=== PATIENT | female | born 1945 | race Caucasian/White ===

== ENCOUNTER 2018-12-11 21:01 | Emergency (ER) | payer MEDICARE, BC ==
[~2018-12-11] VITALS: Ht 162.6 cm; Wt 95.7 kg
[~2018-12-11 21:01] MED LIST: ADVAIR 100-501 EACH INH; ATIVAN2 MG PO; DOXYCYCLINE 10100 MG PO; HYDROCODON-ACE1 EAC5 PO; SYMBICORT160 MCG/4. INH; TESSALON PERLE100 MG PO
[2018-12-11 21:13] LABS: URINE BILIRUBIN NEGATIVE (Negative); URINE BLOOD TRACE (Negative); URINE COLOR YELLOW; URINE GLUCOSE-RANDOM NEGATIVE (Negative); URINE KETONES NEGATIVE (Negative); URINE LEUKOCYTES-REFLEX 1+ (Negative); URINE NITRITE-REFLEX NEGATIVE (Negative); URINE PROTEIN NEGATIVE (Negative); URINE UROBILINOGEN 0.2 E.U./dl (0.2-1.0)
[2018-12-11 21:14] LABS: URINE CLARITY SL CLOUDY
[2018-12-11] MEDS ORDERED: BYSTOLIC 5 MG5 MG PO (21:15)
[2018-12-11] MEDS ORDERED: ADVAIR HFA 230M12 GM INH (21:15)
[2018-12-11 21:20] LABS: BACTERIA-REFLEX >30 Many /HPF (None Seen); CASTS None Seen /LPF (None Seen); CRYSTALS None Seen /LPF (None Seen); MUCUS 4-6 Moderate strn/LPF (None Seen); SQUAMOUS 0-3 Few /LPF (0-3); TRANSITIONAL EPITHEL CELL 0-3 Few /LPF (None Seen); URINE WBC-REFLEX >25 Many /HPF (0-5); WBC CLUMPS Moderate (None Seen)
[2018-12-11] MEDS ORDERED: PYRIDIUM200 MG PO (22:40)
[2018-12-11] MEDS ORDERED: BACTRIM DS TAB1 EAC1 PO (22:40)
[2018-12-11 22:48] VITALS: BP 141/75
== END 2018-12-11 22:48 | disposition home or self-care (01) ==
LOC: M.ERS 21:01
PROVIDERS: Emergency Medicine
DX: N39.0 Urinary tract infection, site not specified (principal); J45.909 Unspecified asthma, uncomplicated; M79.7 Fibromyalgia; Z88.5 Allergy status to narcotic agent; Z88.6 Allergy status to analgesic agent; Z88.8 Allergy status to other drugs, medicaments and biological substances; Z90.710 Acquired absence of both cervix and uterus

== ENCOUNTER 2020-10-25 15:05 | Observation (INO) | payer MEDICARE, BC ==
[~2020-10-25] VITALS: Ht 162.6 cm; Wt 95.7 kg
[~2020-10-25 15:05] MED LIST changes: +ADVAIR HFA 230M12 GM INH; +BACTRIM DS TAB1 EAC1 PO; +BYSTOLIC 5 MG5 MG PO; +PYRIDIUM200 MG PO
[2020-10-25 15:15] VITALS: BP 128/53
[2020-10-25] MEDS ORDERED: EDARBYCLOR 40-1 EAC1 PO (15:27)
[2020-10-25 15:47] LABS: ABSOLUTE LYMPHOCYTES 1.5 thou/uL (0.8-5.3); ABSOLUTE MONOCYTES 0.4 thou/uL (0.0-1.2); BASOPHILS 0.3 %; EOSINOPHILS 0.7 %; HEMATOCRIT 40.2 % (37.0-47.0); HEMOGLOBIN 13.4 gm/dL (12.0-15.0); LYMPHOCYTES 25.7 %; MCH 31.8 pg (26.0-34.0); MCHC 33.4 g/dL (28.0-37.0); MCV 95.1 fL (80.0-100.0); MONOCYTES 6.9 %; MPV 8.1 fl. (7.2-11.1); NUCLEATED RBCS 0 /100WBC; PLATELET COUNT* 140 thou/uL (150-400); POLYS 66.4 %; RBC 4.22 mil/uL (4.20-5.00); RDW-CV 13.4 % (10.5-14.5)
[2020-10-25 15:58] LABS: CALCIUM 8.2 mg/dL (8.5-10.1); CREATININE 1.3 mg/dL (0.6-1.3)
[2020-10-25 16:02] LABS: ALBUMIN 3.6 g/dL (3.4-5.0); TOTAL BILIRUBIN 0.4 mg/dL (<0.1-1.0); TOTAL PROTEIN 6.9 g/dL (6.4-8.2)
--- NOTE | 2020-10-25 17:06 | EKG ---
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 : 1945 Requested By: Elizabeth Dean Order Number: [id number] MD: Tomas Osorio Measurements Intervals [place] Rate: 67 P: 55 [place]: 163 QRS: -23 QRSD: 102 T: -18 QT: 404 QTc: 427 Interpretive Statements Sinus rhythm Borderline left axis deviation Nonspecific T abnormalities, diffuse leads No previous ECG available for comparison Electronically Signed On 10-25-2020 17:06:15 CDT by Tomas Osorio [email or web address] <ELECTRONICALLY SIGNED> By: Tomas Osorio MD, [facility] 10/25/20 1706 1539 1539 Tomas Osorio MD, [facility] /EPI
[2020-10-25 18:22] VITALS: BP 117/66
== END 2020-10-25 18:30 | disposition left against medical advice (07) ==
LOC: M.ERS 15:05 → M.TBA-ER 17:02
PROVIDERS: Physician Assistant; ADMIT Internal Medicine; ATTEND Internal Medicine
DX: R55 Syncope and collapse (principal); R11.10 Vomiting, unspecified; J45.909 Unspecified asthma, uncomplicated; M79.7 Fibromyalgia; Z90.710 Acquired absence of both cervix and uterus; Z79.899 Other long term (current) drug therapy; Z88.5 Allergy status to narcotic agent; Z88.8 Allergy status to other drugs, medicaments and biological substances